=== PATIENT | female | born 1945 | race Two or more races ===

== ENCOUNTER 2017-07-27 17:44 | Emergency (ER) | payer SELFPAY ==
[~2017-07-27] VITALS: Ht 162.6 cm; Wt 65.8 kg
[2017-07-27 17:46] VITALS: BP 121/81
--- NOTE | 2017-07-27 17:56 | Emergency Room Report ---
History of Present Illness General Chief Complaint: Pain Source: Patient Present Illness HPI Patient presents with complaints of left knee pain Patient reports that she fell onto her left knee Just prior to arrival She has had bilateral knee replacements pain is worse now with standing and bearing weight Denies any fevers or chills denies any lapse of consciousness Describes a mechanical fall in nature Pain is 8/10 localized to the left knee Allergies: Coded Allergies: PENICILLINS (Verified Allergy, Unknown, 07/27/17) Patient History Past Medical History: see triage record Pertinent Family History: none Reviewed Nursing Documentation: PMH: Agreed, PSxH: Agreed Nursing Documentation-PMH Past Medical History: No History, Except For Review of Systems All Other Systems: negative except mentioned in HPI Physical Exam Vital Signs Date Time Temp Pulse Resp B/P (MAP) Pulse Ox O2 Delivery O2 Flow Rate FiO2 07/27/17 17:46 98.8 81 18 121/81 99 Room Air Sp02 EP Interpretation: reviewed, normal General Appearance: well appearing, no apparent distress Head: normocephalic, atraumatic Eyes: bilateral eye PERRL, bilateral eye EOMI ENT: normal pharynx, no angioedema Neck: supple, thyroid normal Respiratory: lungs clear Cardiovascular #1: regular rate, rhythm Gastrointestinal: non tender, soft Musculoskeletal: other - Tender on palpation of the lateral aspect of the left patellar region, mild effusion compared to her right sensory intact Neurologic: alert, oriented x3, responsive Skin: other - as above Lymphatic: no adenopathy Medical Decision Making Diagnostic Impression: Primary Impression: Knee contusion ER Course Given the patient's history and presentation imaging study was obtained No obvious acute pathology is seen patient is ambulatory Scar wrap was provided, please note that this is not a splint patient has done better and is stable for close followup Other X-Ray Diagnostic Results Other X-Ray Diagnostic Results : X-Ray ordered: left knee # of Views/Limited Vs Complete: 3 View Indication: Pain EP Interpretation: Yes Interpretation: no dislocation, no soft tissue swelling, no fractures Impression: No acute disease Electronically Signed by: Leila Lozano DO Last Vital Signs Date Time Temp Pulse Resp B/P (MAP) Pulse Ox O2 Delivery O2 Flow Rate FiO2 07/27/17 17:46 98.8 81 18 121/81 99 Room Air Status: improved Disposition: HOME, SELF-CARE Condition: Improved Additional Instructions: Patient is provided with the discharge instructions notified to follow up with primary doctor in the next 2-3 days otherwise return to the er with any worsening symptoms. Please note that this report is being documented using [employer] technology. This can lead to erroneous entry secondary to incorrect interpretation by the dictating instrument. LEILA LOZANO D.O. Jul 27, 2017 17:56
[2017-07-27] MEDS ORDERED: thyroid med (17:58)
[2017-07-27 19:12] VITALS: BP 117/82
--- NOTE | 2017-07-28 10:59 | Diagnostic Imaging Report ---
Indication: TRAUMA, pain, status post fall Technique: 3 views of the left knee Comparison: None Findings:There is a knee prosthesis in place, which appears well aligned. No periprosthetic lucency demonstrated. No suprapatellar effusion. No acute fracture. No dislocations. Impression:Postsurgical changes, as described No acute bony trauma This agrees with the preliminary interpretation provided by the emergency room physician
== END 2017-07-27 19:12 | disposition home or self-care (01) ==
LOC: EMR 18:10
DX: S80.02XA Contusion of left knee, initial encounter (principal); W19.XXXA Unspecified fall, initial encounter; Y92.89 Other specified places as the place of occurrence of the external cause; Z96.653 Presence of artificial knee joint, bilateral; Z88.0 Allergy status to penicillin
CPT/HCPCS: 99283